=== PATIENT | male | born 1990 | race Caucasian/White ===

== ENCOUNTER 2018-05-01 10:55 | Emergency (ER) | payer MEDICAID ==
[~2018-05-01] VITALS: Ht 180.3 cm; Wt 67.8 kg
[2018-05-01 12:24] LABS: BASOPHILS % (AUTO) 0.5 % (0-1); EOSINOPHILS # (AUTO) 0.1 X10'3 (0-0.9); HEMATOCRIT 40.8 % (42.0-52.0); HEMOGLOBIN 13.5 g/dl (14.0-17.9); MEAN CORPUSCULAR HEMOGLOBIN 28.1 PG (27.0-31.0); MEAN CORPUSCULAR HGB CONC 33.1 % (33.0-36.5); MEAN PLATELET VOLUME 8.7 FL (7.4-10.4); MONOCYTES # (AUTO) 0.5 X10'3 (0-0.9); MONOCYTES % (AUTO) 7.3 % (2-12); NEUTROPHILS # (AUTO) 5.1 X10'3 (1.8-7.7); NEUTROPHILS % (AUTO) 76.2 % (42-75); PLATELET COUNT 225 X10'3 (140-440); RED CELL DISTRIBUTION WIDTH 15.5 % (11.5-14.5); WHITE BLOOD COUNT 6.7 X10'3 (4.5-11.0)
[2018-05-01 12:46] LABS: CLARITY,URINE CLEAR (Clear); COLOR,URINE STRAW (Yellow); GLUCOSE, URINE NEGATIVE (Neg); KETONES,URINE NEGATIVE (Neg); LEUKOCYTE ESTERASE ,URINE SMALL (Neg); NITRITES, URINE NEGATIVE (Neg); OCCULT BLOOD,URINE NEGATIVE (Neg); PROTEIN,URINE NEGATIVE (Neg); UA COLLECTION TYPE CLN CATCH MIDSTREAM; UROBILINOGEN,URINE 0.2 E.U/dL (0.2-1.0)
[2018-05-01 12:51] LABS: URINE AMPHETAMINE SCREEN NEGATIVE (Neg); URINE BARBITUATE SCREEN NEGATIVE (Neg); URINE BENZODIAZEPINES SCREEN NEGATIVE (Neg); URINE CANNABINOID SCREEN NEGATIVE (Neg); URINE COCAINE SCREEN NEGATIVE (Neg); URINE METHADONE SCREEN NEGATIVE (Neg); URINE OPIATE SCREEN NEGATIVE (Neg); URINE PHENCYCLIDINE SCREEN NEGATIVE (Neg)
[2018-05-01 12:52] LABS: ALANINE AMINOTRANSFERASE 209 U/L (12-78); ALBUMIN 3.6 G/DL (3.4-5.0); ALBUMIN/GLOBULIN RATIO 0.9 (1.1-1.5); ALKALINE PHOSPHATASE 84 IU/L (46-116); ANION GAP 8 (8-16); ASPARTATE AMINO TRANSFERASE 83 U/L (10-37); BILIRUBIN,TOTAL 0.1 MG/DL (0.1-1.0); BLOOD UREA NITROGEN 13 MG/DL (7-18); BUN/CREATININE RATIO 17.8 (5.4-32.0); CALCIUM 8.8 MG/DL (8.5-10.1); CHLORIDE 101 MMOL/L (99-107); CREATININE 0.73 MG/DL (0.60-1.10); ETHANOL < 0.010 GM/DL (0.0-0.010); GLUCOSE 93 MG/DL (70-104); POTASSIUM 3.9 MMOL/L (3.5-5.1); SODIUM 138 MMOL/L (135-145); TOTAL CARBON DIOXIDE 28.8 MMOL/L (24-32); TOTAL PROTEIN 7.5 G/DL (6.4-8.2); eGFR > 90 ML/MIN
[2018-05-01 12:53] VITALS: BP 125/70
[2018-05-01 12:58] LABS: BACTERIA,URINE NONE SEEN /HPF (Neg); RBC,URINE 0-2 /HPF (0-2); SQUAMOUS EPITHELIAL CELL,UR FEW /LPF (FEW); WBC,URINE 0-4 /HPF (0-4)
[2018-05-01] MEDS ORDERED: LIT300C PO (16:07)
[2018-05-01] MEDS ORDERED: LITH300C PO (16:07)
[2018-05-01] MEDS ORDERED: LITH600C PO (19:25)
[2018-05-01] MEDS ORDERED: lithium carbonate 150mg capsule PO SCH (21:00)
== END 2018-05-01 20:15 | disposition home or self-care (01) ==
LOC: ER 10:56
DX: R45.851 Suicidal ideations (principal); F31.9 Bipolar disorder, unspecified; F20.9 Schizophrenia, unspecified; Z98.890 Other specified postprocedural states
CPT/HCPCS: 36415; 80053; 80178; 80305; 80320; 81001; 85025; 99284

== ENCOUNTER 2018-09-25 13:14 | Emergency (ER) | payer MEDICAID ==
[~2018-09-25] VITALS: Ht 180.3 cm; Wt 68.2 kg
[~2018-09-25 13:14] MED LIST: LITH600C PO
[2018-09-25] MEDS ORDERED: NO HOME MEDS (14:19)
--- NOTE | 2018-09-25 14:19 | NUR ---
PT STATES HE HAS LIVED HERE FOR 3 YEARS. FROM [place]. HAS BEEN HAVING ISSUES WITH HEARING VOICES IN HIS HEAD FOR YEARS. BUT RECENTLY HE HAS BEEN HAVING THE DESIRE TO ACT ON HIS THOUGHTS OF HURTING HIMSELF. HE STATES HE DOESN'T HAVE A SPECIFIC PLAN. HE SAID HIS VOICES AREN'T TELLING HIM ANYTHING SPECIFIC BUT IT'S A MUMBLED MIXTURE OF THOUGHTS. HE STATES HE HAS BEEN HAVING A HARD TIME HOLDING DOWN A JOB. PT STATES HE RECENTLY OVERDOSED ON HEROIN AND DOESN'T WANT TO DO THIS "OR GET THIS BAD AGAIN". PT STATES AT THAT TIME HE WAS INTUBATED AND WAS SEEN AT [facility].
[2018-09-25 14:33] LABS: URINE AMPHETAMINE SCREEN NEGATIVE (Neg); URINE BARBITUATE SCREEN NEGATIVE (Neg); URINE BENZODIAZEPINES SCREEN NEGATIVE (Neg); URINE CANNABINOID SCREEN NEGATIVE (Neg); URINE COCAINE SCREEN NEGATIVE (Neg); URINE METHADONE SCREEN NEGATIVE (Neg); URINE OPIATE SCREEN NEGATIVE (Neg); URINE PHENCYCLIDINE SCREEN NEGATIVE (Neg)
[2018-09-25 15:06] LABS: BASOPHILS % (AUTO) 0.6 % (0-1); EOSINOPHILS # (AUTO) 0.1 X10'3 (0-0.9); EOSINOPHILS % (AUTO) 1.2 % (0-6); LYMPHOCYTES # (AUTO) 1.3 X10'3 (1.1-4.8); LYMPHOCYTES % (AUTO) 19.1 % (21-51); MEAN CORPUSCULAR HEMOGLOBIN 29.1 PG (27.0-31.0); MEAN CORPUSCULAR HGB CONC 33.2 g/dL (33.0-36.5); MEAN CORPUSCULAR VOLUME 87.6 FL (78-98); MONOCYTES # (AUTO) 0.6 X10'3 (0-0.9); MONOCYTES % (AUTO) 7.9 % (2-12); NEUTROPHILS % (AUTO) 71.2 % (42-75); PLATELET COUNT 263 X10'3 (140-440); RED BLOOD COUNT 5.14 X10'6 (4.70-6.10); RED CELL DISTRIBUTION WIDTH 14.5 % (11.5-14.5)
[2018-09-25 15:24] LABS: ALANINE AMINOTRANSFERASE 101 U/L (12-78); ALBUMIN 3.9 G/DL (3.4-5.0); ALBUMIN/GLOBULIN RATIO 1.1 (1.1-1.5); ALKALINE PHOSPHATASE 67 IU/L (46-116); ANION GAP 3 (8-16); ASPARTATE AMINO TRANSFERASE 52 U/L (10-37); BILIRUBIN,TOTAL 0.2 MG/DL (0.1-1.0); BLOOD UREA NITROGEN 12 MG/DL (7-18); BUN/CREATININE RATIO 16.2 (5.4-32.0); CALCIUM 9.3 MG/DL (8.5-10.1); CHLORIDE 104 MMOL/L (99-107); CREATININE 0.74 MG/DL (0.60-1.10); GLUCOSE 90 MG/DL (70-104); POTASSIUM 5.2 MMOL/L (3.5-5.1); SODIUM 138 MMOL/L (135-145); TOTAL CARBON DIOXIDE 31.5 MMOL/L (24-32); TOTAL PROTEIN 7.4 G/DL (6.4-8.2); eGFR > 90 ML/MIN
[2018-09-25 15:32] LABS: ETHANOL < 0.010 GM/DL (0.0-0.010)
--- NOTE | 2018-09-25 15:41 | NUR ---
PT GIVEN A SANDWICH. AND NOW HE IS WANTING MORE. GIVING HIM CRACKERS AND APPLE SAUCE
--- NOTE | 2018-09-25 16:19 | NUR ---
PT SLEEPING ON ASHLEE
--- NOTE | 2018-09-26 06:30 | NUR ---
PT up to the bathroom-1 void
--- NOTE | 2018-09-26 08:00 | NUR ---
PT up to bathroom-1 void
--- NOTE | 2018-09-26 08:12 | NUR ---
PT FINISHED BREAKFAST AND IS NOW RESTING IN BED. HE HAS BEEN AWAKE AND ALERT WITH STAFF. HE HAS BEEN ACTING APPROPRIATELY BY ASKING FOR SNACKS AND TOILETING INDEPENDENTLY.
--- NOTE | 2018-09-26 13:00 | NUR ---
Sleeping throughout morning except to get up to use bathroom. Pleasant and courteous when addressed. Does not engage in conversation except to provide brief answers to questions.
--- NOTE | 2018-09-26 14:30 | NUR ---
Dr. Presley at bedside to evaluate patient.
[2018-09-26] MEDS ORDERED: PALIPERIDONE 3 MG TAB.ER.24 PO ONE (16:25)
[2018-09-26] MEDS ORDERED: nicotine 21mg patch - 24 hr TD ONE (16:25)
[2018-09-26] MEDS ORDERED: divalproex sodium 250mg tablet PO ONE (16:25)
--- NOTE | 2018-09-26 17:15 | NUR ---
Medication orders wriiten by Dr. Presley. Administered to patient as ordered without event.
--- NOTE | 2018-09-26 19:00 | NUR ---
Pt resting quietly in bed, ate entire dinner tray.
[2018-09-26] MEDS ORDERED: divalproex sodium 500mg tablet.DR PO SCH (21:00)
--- NOTE | 2018-09-26 21:10 | NUR ---
Pt is cooperative with assessment and med administration. Pt states he is still having passive suicidal ideation. He has no clear plan. He says, " I just want to get stabalized on medication again, so these thoughts can go away." He used the bathroom and ate 100% of dinner.
--- NOTE | 2018-09-27 01:00 | NUR ---
Pt asleep on L side.
--- NOTE | 2018-09-27 03:00 | NUR ---
Pt used the bathroom twice. Pt falls asleep easily after each bathroom trip.
--- NOTE | 2018-09-27 05:28 | NUR ---
Pt asleep on L side, respirations WNL
[2018-09-27 05:37] VITALS: BP 123/77
[2018-09-27] MEDS ORDERED: divalproex sodium 250mg tablet PO ONE (08:00)
[2018-09-27] MEDS ORDERED: PALIPERIDONE 3 MG TAB.ER.24 PO SCH (08:00)
[2018-09-27] MEDS ORDERED: nicotine 21mg patch - 24 hr TD SCH (08:00)
--- NOTE | 2018-09-27 13:26 | NUR ---
1530 pickup time for [facility].
== END 2018-09-27 16:23 ==
LOC: ER 13:14
DX: F29 Unspecified psychosis not due to a substance or known physiological condition (principal); F31.9 Bipolar disorder, unspecified; F20.9 Schizophrenia, unspecified; F17.200 Nicotine dependence, unspecified, uncomplicated; F12.90 Cannabis use, unspecified, uncomplicated; F15.90 Other stimulant use, unspecified, uncomplicated; F11.90 Opioid use, unspecified, uncomplicated; Z98.890 Other specified postprocedural states
CPT/HCPCS: 36415; 80053; 80305; 80320; 84132; 84443; 85025; 99285

== ENCOUNTER 2020-07-06 12:47 | Emergency (ER) | payer MEDICAID, OTHER ==
[~2020-07-06] VITALS: Ht 180.3 cm; Wt 64.0 kg
[~2020-07-06 12:47] MED LIST changes: -LITH600C PO; +NO HOME MEDS
[2020-07-06 12:55] VITALS: BP 124/80
[2020-07-06] MEDS ORDERED: acetaminophen 325mg tablet PO ONE (15:05)
[2020-07-06] MEDS ORDERED: OLANZapine 5mg rapidly disint. tablet PO ONE (15:05)
[2020-07-06] MEDS ORDERED: naproxen 500mg tablet PO ONE (15:05)
[2020-07-06] MEDS ORDERED: NAPR-56 PO (15:06)
[2020-07-06] MEDS ORDERED: OLAN-1 PO (15:06)
== END 2020-07-06 15:17 | disposition home or self-care (01) ==
LOC: ER 12:47
DX: R51.9 Headache, unspecified (principal); R10.9 Unspecified abdominal pain; R25.2 Cramp and spasm; F12.90 Cannabis use, unspecified, uncomplicated; F15.90 Other stimulant use, unspecified, uncomplicated; F11.90 Opioid use, unspecified, uncomplicated; Z72.89 Other problems related to lifestyle; Z87.81 Personal history of (healed) traumatic fracture; Z79.899 Other long term (current) drug therapy
CPT/HCPCS: 99284

== ENCOUNTER 2020-07-14 15:04 | Emergency (ER) | payer SELFPAY ==
[~2020-07-14] VITALS: Ht 180.3 cm; Wt 4.5 kg
[~2020-07-14 15:04] MED LIST changes: +NAPR-56 PO; +OLAN-1 PO
[2020-07-14 15:49] LABS: BASOPHILS % (AUTO) 0.4 % (0-1); EOSINOPHILS # (AUTO) 0.1 X10'3 (0-0.9); EOSINOPHILS % (AUTO) 0.8 % (0-6); HEMATOCRIT 47.6 % (42.0-52.0); HEMOGLOBIN 15.7 g/dl (14.0-17.9); LYMPHOCYTES # (AUTO) 1.3 X10'3 (1.1-4.8); LYMPHOCYTES % (AUTO) 20.1 % (21-51); MEAN CORPUSCULAR HEMOGLOBIN 29.4 PG (27.0-31.0); MEAN CORPUSCULAR HGB CONC 33.1 g/dL (33.0-36.5); MEAN CORPUSCULAR VOLUME 88.7 FL (78-98); MEAN PLATELET VOLUME 9.4 FL (7.4-10.4); MONOCYTES # (AUTO) 0.5 X10'3 (0-0.9); MONOCYTES % (AUTO) 7.8 % (2-12); NEUTROPHILS # (AUTO) 4.5 X10'3 (1.8-7.7); NEUTROPHILS % (AUTO) 70.9 % (42-75); PLATELET COUNT 236 X10'3 (140-440); RED BLOOD COUNT 5.36 X10'6 (4.70-6.10); RED CELL DISTRIBUTION WIDTH 13.8 % (11.5-14.5); WHITE BLOOD COUNT 6.4 X10'3 (4.5-11.0)
[2020-07-14 15:54] VITALS: BP_DIAS 83
[2020-07-14 16:07] LABS: ALANINE AMINOTRANSFERASE 61 U/L (12-78); ALBUMIN 4.3 G/DL (3.4-5.0); ALBUMIN/GLOBULIN RATIO 1.1 (1.1-1.5); ALKALINE PHOSPHATASE 82 IU/L (46-116); ANION GAP 9 (8-16); ASPARTATE AMINO TRANSFERASE 39 U/L (10-37); BILIRUBIN,TOTAL 0.4 MG/DL (0.1-1.0); BLOOD UREA NITROGEN 11 MG/DL (7-18); BUN/CREATININE RATIO 12.9 (5.4-32.0); CALCIUM 9.4 MG/DL (8.5-10.1); CHLORIDE 104 MMOL/L (99-107); CREATININE 0.85 MG/DL (0.60-1.10); GLUCOSE 111 MG/DL (70-104); POTASSIUM 3.6 MMOL/L (3.5-5.1); SODIUM 143 MMOL/L (135-145); TOTAL CARBON DIOXIDE 30.4 MMOL/L (24-32); TOTAL PROTEIN 8.1 G/DL (6.4-8.2); eGFR > 90 ML/MIN
[2020-07-14 16:52] LABS: D-DIMER < 0.19 MG/L FEU (0-0.50)
[2020-07-14 17:10] VITALS: BP_SYST 94
== END 2020-07-14 17:45 | disposition home or self-care (01) ==
LOC: ER 15:04
DX: J93.83 Other pneumothorax (principal); F19.10 Other psychoactive substance abuse, uncomplicated; R53.1 Weakness; R07.89 Other chest pain; F31.9 Bipolar disorder, unspecified; F20.9 Schizophrenia, unspecified; F17.200 Nicotine dependence, unspecified, uncomplicated; F12.90 Cannabis use, unspecified, uncomplicated; F15.90 Other stimulant use, unspecified, uncomplicated; F11.90 Opioid use, unspecified, uncomplicated; Z98.890 Other specified postprocedural states; Z72.89 Other problems related to lifestyle; Z79.899 Other long term (current) drug therapy
CPT/HCPCS: 36415; 71045; 80053; 83880; 84484; 85025; 85379; 93005; 99285

== ENCOUNTER 2020-07-15 08:28 | Emergency (ER) | payer SELFPAY ==
[~2020-07-15] VITALS: Ht 180.3 cm; Wt 68.2 kg
[2020-07-15 10:18] VITALS: BP 120/79
== END 2020-07-15 10:20 | disposition home or self-care (01) ==
LOC: ER 08:29
DX: J93.83 Other pneumothorax (principal); R06.02 Shortness of breath; R07.89 Other chest pain; F31.9 Bipolar disorder, unspecified; F20.9 Schizophrenia, unspecified; F12.90 Cannabis use, unspecified, uncomplicated; F15.90 Other stimulant use, unspecified, uncomplicated; F11.90 Opioid use, unspecified, uncomplicated; Z98.890 Other specified postprocedural states; Z72.89 Other problems related to lifestyle; Z79.899 Other long term (current) drug therapy
CPT/HCPCS: 71045; 99284

== ENCOUNTER 2020-07-23 05:33 | Emergency (ER) | payer SELFPAY ==
[~2020-07-23] VITALS: Ht 180.3 cm; Wt 63.5 kg
[2020-07-23 07:02] VITALS: BP 131/98
== END 2020-07-23 07:03 | disposition home or self-care (01) ==
LOC: ER 05:33
DX: F29 Unspecified psychosis not due to a substance or known physiological condition (principal); R51.9 Headache, unspecified; F31.9 Bipolar disorder, unspecified; F20.9 Schizophrenia, unspecified; F12.90 Cannabis use, unspecified, uncomplicated; F15.90 Other stimulant use, unspecified, uncomplicated; F11.90 Opioid use, unspecified, uncomplicated; Z98.890 Other specified postprocedural states; Z72.89 Other problems related to lifestyle; Z59.0 Homelessness
CPT/HCPCS: 93005; 99283

== ENCOUNTER 2020-07-24 01:17 | Emergency (ER) | payer OTHER ==
[~2020-07-24] VITALS: Ht 180.3 cm; Wt 63.6 kg
[2020-07-24 01:20] VITALS: BP 151/97
--- NOTE | 2020-07-24 01:33 | NUR ---
When asked what he would like the to do for him tonight, patient states that he wants to go upstairs because he needs the pressure inside regulated.
[2020-07-24] MEDS ORDERED: ibuprofen tablet 400 MG TABLET PO ONE (02:00)
[2020-07-24] MEDS ORDERED: acetaminophen 325mg tablet PO ONE (02:00)
== END 2020-07-24 02:35 | disposition home or self-care (01) ==
LOC: ER 01:18
DX: R07.81 Pleurodynia (principal); F31.9 Bipolar disorder, unspecified; F20.9 Schizophrenia, unspecified; F12.90 Cannabis use, unspecified, uncomplicated; F15.90 Other stimulant use, unspecified, uncomplicated; Z72.89 Other problems related to lifestyle; Z98.890 Other specified postprocedural states; Z59.0 Homelessness; Z79.899 Other long term (current) drug therapy
CPT/HCPCS: 71045; 93005; 99283

== ENCOUNTER 2020-08-03 13:35 | Emergency (ER) | payer SELFPAY ==
[~2020-08-03] VITALS: Ht 180.3 cm; Wt 63.9 kg
[2020-08-03 13:43] VITALS: BP 108/79
[2020-08-03] MEDS ORDERED: DIPH25CA83 PO (14:42)
[2020-08-03] MEDS ORDERED: RISP1TAB13 PO (14:42)
== END 2020-08-03 15:17 | disposition home or self-care (01) ==
LOC: ER 13:36
DX: F29 Unspecified psychosis not due to a substance or known physiological condition (principal); F31.9 Bipolar disorder, unspecified; F20.9 Schizophrenia, unspecified; F12.90 Cannabis use, unspecified, uncomplicated; F15.90 Other stimulant use, unspecified, uncomplicated; Z72.89 Other problems related to lifestyle; Z98.890 Other specified postprocedural states; Z59.0 Homelessness; Z79.899 Other long term (current) drug therapy
CPT/HCPCS: 99284

== ENCOUNTER 2021-03-24 23:46 | Emergency (ER) | payer OTHER ==
[~2021-03-24] VITALS: Ht 180.3 cm; Wt 72.7 kg
[~2021-03-24 23:46] MED LIST changes: +DIPH25CA83 PO; -NAPR-56 PO; +RISP1TAB13 PO
[2021-03-25] MEDS ORDERED: RISP1TAB13 PO (00:22)
[2021-03-25] MEDS ORDERED: OLAN-1 PO (00:22)
[2021-03-25] MEDS ORDERED: DIPH25CA83 PO (00:22)
[2021-03-25] MEDS ORDERED: OLANZapine 5mg rapidly disint. tablet PO ONE (00:25)
[2021-03-25 00:39] VITALS: BP 132/92
== END 2021-03-25 00:59 | disposition home or self-care (01) ==
LOC: ER 23:48
DX: F29 Unspecified psychosis not due to a substance or known physiological condition (principal); F31.9 Bipolar disorder, unspecified; F20.9 Schizophrenia, unspecified; F17.200 Nicotine dependence, unspecified, uncomplicated; F12.90 Cannabis use, unspecified, uncomplicated; Z98.890 Other specified postprocedural states; Z72.89 Other problems related to lifestyle; Z56.0 Unemployment, unspecified; Z59.00 Homelessness unspecified; Z79.899 Other long term (current) drug therapy
CPT/HCPCS: 99284

== ENCOUNTER 2021-04-08 07:56 | Emergency (ER) | payer MEDICAID, OTHER ==
[~2021-04-08] VITALS: Ht 180.3 cm; Wt 63.6 kg
[2021-04-08 08:00] VITALS: BP 159/90
[2021-04-08] MEDS ORDERED: olanzapine 10mg tablet PO STA (08:28)
[2021-04-08] MEDS ORDERED: diphenhydrAMINE 25mg capsule PO ONE (08:30)
== END 2021-04-08 09:33 | disposition home or self-care (01) ==
LOC: ER 07:57
DX: F29 Unspecified psychosis not due to a substance or known physiological condition (principal); R45.1 Restlessness and agitation; F31.9 Bipolar disorder, unspecified; F20.9 Schizophrenia, unspecified; F12.90 Cannabis use, unspecified, uncomplicated; R56.9 Unspecified convulsions; Z72.89 Other problems related to lifestyle; Z59.00 Homelessness unspecified; Z98.890 Other specified postprocedural states; Z79.899 Other long term (current) drug therapy
CPT/HCPCS: 99283; Q0163

== ENCOUNTER 2021-06-15 01:28 | Emergency (ER) | payer MEDICAID, OTHER ==
[~2021-06-15] VITALS: Ht 177.8 cm; Wt 72.7 kg
[2021-06-15] MEDS ORDERED: LORazepam 2 mg/ml vial IM ONE (01:30)
[2021-06-15 01:43] VITALS: BP 122/62
== END 2021-06-15 01:54 ==
LOC: ER 01:28
DX: Z00.8 Encounter for other general examination (principal); F31.9 Bipolar disorder, unspecified; F20.9 Schizophrenia, unspecified; F12.90 Cannabis use, unspecified, uncomplicated; Z59.00 Homelessness unspecified; Z72.89 Other problems related to lifestyle; Z98.890 Other specified postprocedural states; Z79.899 Other long term (current) drug therapy
CPT/HCPCS: 96372; 99283; J2060

== ENCOUNTER 2021-09-23 13:26 | Emergency (ER) | payer SELFPAY ==
[~2021-09-23] VITALS: Ht 180.3 cm; Wt 28.9 kg
[2021-09-23 14:12] VITALS: BP 105/49
[2021-09-23 15:02] LABS: BASOPHILS % (AUTO) 0.1 % (0-1); EOSINOPHILS % (AUTO) 0.1 % (0-6); HEMATOCRIT 42.3 % (42.0-52.0); LYMPHOCYTES # (AUTO) 0.3 X10'3 (1.1-4.8); LYMPHOCYTES % (AUTO) 1.9 % (21-51); MEAN CORPUSCULAR HEMOGLOBIN 29.6 PG (27.0-31.0); MEAN CORPUSCULAR VOLUME 89.9 FL (78-98); MEAN PLATELET VOLUME 8.8 FL (7.4-10.4); MONOCYTES # (AUTO) 0.7 X10'3 (0-0.9); MONOCYTES % (AUTO) 4.4 % (2-12); NEUTROPHILS # (AUTO) 14.7 X10'3 (1.8-7.7); NEUTROPHILS % (AUTO) 93.5 % (42-75); PLATELET COUNT 228 X10'3 (140-440); RED BLOOD COUNT 4.71 X10'6 (4.70-6.10); RED CELL DISTRIBUTION WIDTH 14.2 % (11.5-14.5); WHITE BLOOD COUNT 15.7 X10'3 (4.5-11.0)
[2021-09-23 15:13] LABS: ALANINE AMINOTRANSFERASE 46 U/L (12-78); ALBUMIN 3.4 G/DL (3.4-5.0); ALBUMIN/GLOBULIN RATIO 1.1 (1.1-1.5); ALKALINE PHOSPHATASE 76 IU/L (46-116); ANION GAP 10 (8-16); ASPARTATE AMINO TRANSFERASE 33 U/L (10-37); BILIRUBIN,TOTAL 0.4 MG/DL (0.1-1.0); BLOOD UREA NITROGEN 19 MG/DL (7-18); BUN/CREATININE RATIO 18.1 (5.4-32.0); CALCIUM 8.1 MG/DL (8.5-10.1); CHLORIDE 109 MMOL/L (99-107); CREATININE 1.05 MG/DL (0.60-1.10); GLUCOSE 146 MG/DL (70-104); POTASSIUM 4.1 MMOL/L (3.5-5.1); SODIUM 145 MMOL/L (135-145); TOTAL CARBON DIOXIDE 25.8 MMOL/L (24-32); TOTAL PROTEIN 6.6 G/DL (6.4-8.2); eGFR 83 ML/MIN
== END 2021-09-23 15:40 | disposition home or self-care (01) ==
LOC: ER 13:26
DX: T40.411A Poisoning by fentanyl or fentanyl analogs, accidental (unintentional), initial encounter (principal); R00.0 Tachycardia, unspecified; Y92.89 Other specified places as the place of occurrence of the external cause; F31.9 Bipolar disorder, unspecified; F20.9 Schizophrenia, unspecified; F12.10 Cannabis abuse, uncomplicated; Z59.00 Homelessness unspecified; Z79.899 Other long term (current) drug therapy
CPT/HCPCS: 36415; 70450; 80053; 85025; 93005; 99285

== ENCOUNTER 2023-08-26 13:09 | Emergency (ER) | payer MEDICAID ==
[~2023-08-26] VITALS: Ht 177.8 cm; Wt 86.4 kg
[~2023-08-26 13:09] MED LIST changes: +BUPR1TAB44 SL; +CLOT15CR35 TP; -DIPH25CA83 PO; +ESCI-8 PO; +HYDR-3686 PO; +NICO-907 BC; -OLAN-1 PO; +PANT40TA54 PO; +QUET100T34 PO; -RISP1TAB13 PO
[2023-08-26 13:23] VITALS: TEMP 98.2
[2023-08-26] MEDS ORDERED: ketorolac trometh. 30mg/ml inj. IM ONE (13:25)
[2023-08-26] MEDS: ketorolac tromethamine 15mg/ml inj. IM ONE (13:38)
[2023-08-26 17:48] VITALS: BP 126/81; PULSE 87; RESP 18; O2SAT 99
== END 2023-08-26 18:23 | disposition home or self-care (01) ==
LOC: ER 13:10
DX: T40.601A Poisoning by unspecified narcotics, accidental (unintentional), initial encounter (principal); F20.9 Schizophrenia, unspecified; F12.90 Cannabis use, unspecified, uncomplicated; F15.90 Other stimulant use, unspecified, uncomplicated; R11.0 Nausea; Z72.89 Other problems related to lifestyle; Z59.00 Homelessness unspecified; Z98.890 Other specified postprocedural states; Y92.89 Other specified places as the place of occurrence of the external cause
CPT/HCPCS: 82948; 96372; 99283; J1885

== ENCOUNTER 2023-08-27 10:55 | Emergency (ER) | payer MEDICAID ==
[~2023-08-27] VITALS: Ht 180.3 cm; Wt 58.0 kg
[2023-08-27 11:02] VITALS: TEMP 97.5
[2023-08-27 12:04] LABS: BASOPHILS % (AUTO) 0.4 % (0-1); EOSINOPHILS # (AUTO) 0.1 X10'3 (0-0.9); EOSINOPHILS % (AUTO) 0.9 % (0-6); HEMATOCRIT 36.7 % (42.0-52.0); HEMOGLOBIN 12.2 g/dl (14.0-17.9); LYMPHOCYTES # (AUTO) 1.1 X10'3 (1.1-4.8); LYMPHOCYTES % (AUTO) 12.7 % (21-51); MEAN CORPUSCULAR HEMOGLOBIN 29.3 PG (27.0-31.0); MEAN CORPUSCULAR HGB CONC 33.2 g/dL (33.0-36.5); MEAN CORPUSCULAR VOLUME 88.3 FL (78-98); MEAN PLATELET VOLUME 8.5 FL (7.4-10.4); MONOCYTES # (AUTO) 0.7 X10'3 (0-0.9); NEUTROPHILS # (AUTO) 6.6 X10'3 (1.8-7.7); PLATELET COUNT 206 X10'3 (140-440); RED BLOOD COUNT 4.16 X10'6 (4.70-6.10); RED CELL DISTRIBUTION WIDTH 13.5 % (11.5-14.5); WHITE BLOOD COUNT 8.5 X10'3 (4.5-11.0)
[2023-08-27] MEDS: normal saline 1000ML IV soln IVB ONE (12:07)
[2023-08-27] MEDS: TETanus/Pertussis (Acell)/Diphther VAC/PF (Tdap-Adult) 0.5ml syringe IMVAC ONE (12:17)
[2023-08-27 12:22] LABS: ALBUMIN 3.3 G/DL (3.4-5.0); ANION GAP 9 (8-16); BLOOD UREA NITROGEN 15 MG/DL (7-18); BUN/CREATININE RATIO 16.3 (10.0-20.0); CALCIUM 8.5 MG/DL (8.5-10.1); CHLORIDE 102 MMOL/L (99-107); CREATININE 0.92 MG/DL (0.60-1.10); ETHANOL < 10 MG/DL (<10); GLUCOSE 86 MG/DL (70-104); POTASSIUM 3.2 MMOL/L (3.5-5.1); SODIUM 140 MMOL/L (135-145); TOTAL CARBON DIOXIDE 29.5 MMOL/L (24-32); eCRCL 95 ML/MIN; eGFR > 90 ML/MIN
[2023-08-27 14:20] LABS: URINE AMPHETAMINE SCREEN POSITIVE (Neg); URINE BARBITUATE SCREEN NEGATIVE (Neg); URINE BENZODIAZEPINES SCREEN NEGATIVE (Neg); URINE CANNABINOID SCREEN POSITIVE (Neg); URINE COCAINE SCREEN NEGATIVE (Neg); URINE METHADONE SCREEN NEGATIVE (Neg); URINE OPIATE SCREEN NEGATIVE (Neg); URINE PHENCYCLIDINE SCREEN NEGATIVE (Neg)
[2023-08-27 16:01] VITALS: BP 125/88; PULSE 89; RESP 16; O2SAT 98
== END 2023-08-27 16:04 | disposition home or self-care (01) ==
LOC: ER 10:56
DX: T40.601A Poisoning by unspecified narcotics, accidental (unintentional), initial encounter (principal); S00.211A Abrasion of right eyelid and periocular area, initial encounter; R51.9 Headache, unspecified; F12.90 Cannabis use, unspecified, uncomplicated; F15.90 Other stimulant use, unspecified, uncomplicated; Z59.00 Homelessness unspecified; Z79.899 Other long term (current) drug therapy; Z72.89 Other problems related to lifestyle; X58.XXXA Exposure to other specified factors, initial encounter; Y92.89 Other specified places as the place of occurrence of the external cause; Y93.89 Activity, other specified; Y99.8 Other external cause status
CPT/HCPCS: 36415; 70450; 72125; 80048; 80305; 80320; 85025; 90471; 90715; 93005; 96360; 99285; J7030; A6449

== ENCOUNTER 2023-09-01 20:10 | Emergency (ER) | payer MEDICAID ==
[~2023-09-01] VITALS: Ht 177.8 cm; Wt 70.0 kg
[2023-09-01 21:18] LABS: ALBUMIN 3.3 G/DL (3.4-5.0); ANION GAP 7 (8-16); BLOOD UREA NITROGEN 11 MG/DL (7-18); BUN/CREATININE RATIO 10.6 (10.0-20.0); CALCIUM 8.6 MG/DL (8.5-10.1); CHLORIDE 104 MMOL/L (99-107); CREATININE 1.04 MG/DL (0.60-1.10); GLUCOSE 87 MG/DL (70-104); POTASSIUM 3.6 MMOL/L (3.5-5.1); SODIUM 140 MMOL/L (135-145); TOTAL CARBON DIOXIDE 29.4 MMOL/L (24-32); eCRCL 101 ML/MIN; eGFR 83 ML/MIN
[2023-09-01 21:21] LABS: ETHANOL < 10 MG/DL (<10)
[2023-09-01 21:26] LABS: BASOPHILS # (AUTO) 0.1 X10'3 (0-0.2); BASOPHILS % (AUTO) 1.6 % (0-1); EOSINOPHILS # (AUTO) 0.1 X10'3 (0-0.9); EOSINOPHILS % (AUTO) 2.2 % (0-6); HEMATOCRIT 39.5 % (42.0-52.0); HEMOGLOBIN 13.1 g/dl (14.0-17.9); LYMPHOCYTES # (AUTO) 0.7 X10'3 (1.1-4.8); LYMPHOCYTES % (AUTO) 9.9 % (21-51); MEAN CORPUSCULAR HEMOGLOBIN 29.4 PG (27.0-31.0); MEAN CORPUSCULAR HGB CONC 33.2 g/dL (33.0-36.5); MEAN CORPUSCULAR VOLUME 88.7 FL (78-98); MEAN PLATELET VOLUME 8.5 FL (7.4-10.4); MONOCYTES # (AUTO) 0.6 X10'3 (0-0.9); MONOCYTES % (AUTO) 8.7 % (2-12); NEUTROPHILS # (AUTO) 5.1 X10'3 (1.8-7.7); NEUTROPHILS % (AUTO) 77.6 % (42-75); PLATELET COUNT 263 X10'3 (140-440); RED BLOOD COUNT 4.45 X10'6 (4.70-6.10); RED CELL DISTRIBUTION WIDTH 13.4 % (11.5-14.5); WHITE BLOOD COUNT 6.6 X10'3 (4.5-11.0)
[2023-09-01 22:05] LABS: URINE AMPHETAMINE SCREEN POSITIVE (Neg); URINE BARBITUATE SCREEN NEGATIVE (Neg); URINE BENZODIAZEPINES SCREEN NEGATIVE (Neg); URINE CANNABINOID SCREEN POSITIVE (Neg); URINE COCAINE SCREEN NEGATIVE (Neg); URINE METHADONE SCREEN NEGATIVE (Neg); URINE OPIATE SCREEN NEGATIVE (Neg); URINE PHENCYCLIDINE SCREEN NEGATIVE (Neg)
[2023-09-02 17:31] VITALS: BP 121/83; PULSE 82; RESP 16; TEMP 97.4; O2SAT 100
== END 2023-09-02 17:45 | disposition home or self-care (01) ==
LOC: ER 20:11
DX: T40.602A Poisoning by unspecified narcotics, intentional self-harm, initial encounter (principal); F15.90 Other stimulant use, unspecified, uncomplicated; F12.90 Cannabis use, unspecified, uncomplicated; F20.9 Schizophrenia, unspecified; Z72.89 Other problems related to lifestyle; Z59.00 Homelessness unspecified; Z79.899 Other long term (current) drug therapy; Y92.89 Other specified places as the place of occurrence of the external cause
CPT/HCPCS: 36415; 80048; 80305; 80320; 85025; 99284; 99285

== ENCOUNTER 2023-09-06 10:26 | Emergency (ER) | payer MEDICAID ==
[~2023-09-06] VITALS: Ht 180.3 cm; Wt 65.0 kg
[2023-09-06 10:32] VITALS: TEMP 97.8
[2023-09-06 11:21] LABS: BASOPHILS % (AUTO) 0.2 % (0-1); EOSINOPHILS % (AUTO) 0.4 % (0-6); HEMATOCRIT 43.3 % (42.0-52.0); HEMOGLOBIN 14.3 g/dl (14.0-17.9); LYMPHOCYTES # (AUTO) 0.5 X10'3 (1.1-4.8); LYMPHOCYTES % (AUTO) 7.6 % (21-51); MEAN CORPUSCULAR HEMOGLOBIN 29.1 PG (27.0-31.0); MEAN CORPUSCULAR HGB CONC 33.1 g/dL (33.0-36.5); MEAN PLATELET VOLUME 8.6 FL (7.4-10.4); MONOCYTES # (AUTO) 0.4 X10'3 (0-0.9); MONOCYTES % (AUTO) 5.3 % (2-12); NEUTROPHILS # (AUTO) 6.1 X10'3 (1.8-7.7); NEUTROPHILS % (AUTO) 86.5 % (42-75); PLATELET COUNT 304 X10'3 (140-440); RED BLOOD COUNT 4.92 X10'6 (4.70-6.10); RED CELL DISTRIBUTION WIDTH 13.2 % (11.5-14.5); WHITE BLOOD COUNT 7.1 X10'3 (4.5-11.0)
[2023-09-06] MEDS: normal saline 1000ml 1,000 ML IV ONE (11:28)
[2023-09-06 11:31] VITALS: BP 136/90; PULSE 111; O2SAT 100
[2023-09-06 11:34] VITALS: RESP 15
[2023-09-06 11:44] LABS: ALANINE AMINOTRANSFERASE 51 U/L (12-78); ALBUMIN 3.6 G/DL (3.4-5.0); ALBUMIN/GLOBULIN RATIO 0.8 (1.1-1.5); ALKALINE PHOSPHATASE 142 IU/L (46-116); ANION GAP 13 (8-16); ASPARTATE AMINO TRANSFERASE 47 U/L (10-37); BILIRUBIN,TOTAL 0.5 MG/DL (0.1-1.0); BLOOD UREA NITROGEN 15 MG/DL (7-18); CALCIUM 8.8 MG/DL (8.5-10.1); CHLORIDE 103 MMOL/L (99-107); CREATININE 0.75 MG/DL (0.60-1.10); ETHANOL < 10 MG/DL (<10); GLUCOSE 93 MG/DL (70-104); MAGNESIUM 2.2 MG/DL (1.5-2.4); POTASSIUM 4.5 MMOL/L (3.5-5.1); SODIUM 141 MMOL/L (135-145); TOTAL CARBON DIOXIDE 25.2 MMOL/L (24-32); TOTAL PROTEIN 7.9 G/DL (6.4-8.2); eCRCL 130 ML/MIN; eGFR > 90 ML/MIN
[2023-09-06 11:56] LABS: BILIRUBIN,URINE NEGATIVE (Neg); CLARITY,URINE CLOUDY (Clear); COLOR,URINE YELLOW (Yellow); GLUCOSE, URINE NEGATIVE (Neg); KETONES,URINE 15 mg/dl (Neg); LEUKOCYTE ESTERASE ,URINE NEGATIVE (Neg); NITRITES, URINE NEGATIVE (Neg); OCCULT BLOOD,URINE NEGATIVE (Neg); PROTEIN,URINE TRACE mg/dl (Neg)
[2023-09-06 11:59] LABS: UA COLLECTION TYPE URINAL
[2023-09-06 12:03] LABS: URINE AMPHETAMINE SCREEN POSITIVE (Neg); URINE BARBITUATE SCREEN NEGATIVE (Neg); URINE BENZODIAZEPINES SCREEN NEGATIVE (Neg); URINE CANNABINOID SCREEN POSITIVE (Neg); URINE COCAINE SCREEN NEGATIVE (Neg); URINE METHADONE SCREEN NEGATIVE (Neg); URINE OPIATE SCREEN NEGATIVE (Neg); URINE PHENCYCLIDINE SCREEN NEGATIVE (Neg)
[2023-09-06 12:06] LABS: MUCUS STRANDS FEW /LPF (Neg); SPERM MANY /HPF (NEGATIVE); SQUAMOUS EPITHELIAL CELL,UR FEW /LPF (FEW)
[2023-09-06 12:07] LABS: BACTERIA,URINE 1+ /HPF (Neg); RBC,URINE 0-2 /HPF (0-2)
== END 2023-09-06 13:21 | disposition home or self-care (01) ==
LOC: ER 10:27
DX: T40.411A Poisoning by fentanyl or fentanyl analogs, accidental (unintentional), initial encounter (principal); T74.31XA Adult psychological abuse, confirmed, initial encounter; F19.10 Other psychoactive substance abuse, uncomplicated; R45.1 Restlessness and agitation; Z79.899 Other long term (current) drug therapy; Z79.2 Long term (current) use of antibiotics; Y92.89 Other specified places as the place of occurrence of the external cause
CPT/HCPCS: 36415; 80053; 80305; 80320; 81001; 83735; 84484; 85025; 87088; 93005; 96360; 99284; J7030

== ENCOUNTER 2023-12-30 04:54 | Emergency (ER) | payer MEDICAID ==
[~2023-12-30] VITALS: Ht 177.8 cm; Wt 56.2 kg
[2023-12-30 04:57] VITALS: TEMP 97.4
[2023-12-30] MEDS ORDERED: NALO4SPR BOTHNARES (05:50)
[2023-12-30 07:36] VITALS: BP 129/88; PULSE 74; RESP 16; O2SAT 99
== END 2023-12-30 07:38 | disposition home or self-care (01) ==
LOC: ER 04:55
DX: T40.411A Poisoning by fentanyl or fentanyl analogs, accidental (unintentional), initial encounter (principal); M54.2 Cervicalgia; R09.2 Respiratory arrest; F31.9 Bipolar disorder, unspecified; F12.90 Cannabis use, unspecified, uncomplicated; F15.90 Other stimulant use, unspecified, uncomplicated; Z79.899 Other long term (current) drug therapy; Z79.2 Long term (current) use of antibiotics; Y92.89 Other specified places as the place of occurrence of the external cause
CPT/HCPCS: 72040; 99283

== ENCOUNTER 2024-03-25 16:41 | Emergency (ER) | payer MEDICAID ==
[~2024-03-25] VITALS: Ht 172.7 cm; Wt 61.5 kg
[~2024-03-25 16:41] MED LIST changes: +NALO4SPR BOTHNARES
[2024-03-25] MEDS: ketorolac trometh 15mg/ml vial 15 MG/ML ML IM ONE (18:33)
[2024-03-25 18:42] VITALS: BP 114/60; PULSE 90; RESP 18; TEMP 98.8; O2SAT 99
== END 2024-03-25 18:44 | disposition home or self-care (01) ==
LOC: ER 16:42
DX: S00.81XA Abrasion of other part of head, initial encounter (principal); Z79.899 Other long term (current) drug therapy; Z59.00 Homelessness unspecified; W22.8XXA Striking against or struck by other objects, initial encounter; Y93.89 Activity, other specified; Y92.89 Other specified places as the place of occurrence of the external cause; Y99.8 Other external cause status
CPT/HCPCS: 96372; 99283; J1885

== ENCOUNTER → 2024-04-23 | Emergency (ER) | payer MEDICAID ==
[~2024-04-23] VITALS: Ht 180.3 cm; Wt 68.2 kg
[~2024-04-23] MED LIST changes: +BUPR-72 PO; -BUPR1TAB44 SL; -CLOT15CR35 TP; -ESCI-8 PO; -HYDR-3686 PO; -NALO4SPR BOTHNARES; -NICO-907 BC; -NO HOME MEDS; +OLAN5TAB75 PO; -PANT40TA54 PO; +PROP10TA10 PO; -QUET100T34 PO; +TRAZ-251 PO
[2024-04-23 01:48] LABS: BILIRUBIN,URINE NEGATIVE (Neg); CLARITY,URINE CLEAR (Clear); COLOR,URINE YELLOW (Yellow); GLUCOSE, URINE NEGATIVE (Neg); KETONES,URINE NEGATIVE (Neg); LEUKOCYTE ESTERASE ,URINE NEGATIVE (Neg); NITRITES, URINE NEGATIVE (Neg); OCCULT BLOOD,URINE NEGATIVE (Neg); PH,URINE 6.5 (4.8-8.0); PROTEIN,URINE NEGATIVE (Neg)
[2024-04-23 01:54] LABS: UA COLLECTION TYPE CLN CATCH MIDSTREAM
[2024-04-23 02:03] LABS: URINE AMPHETAMINE SCREEN NEGATIVE (Neg); URINE BARBITUATE SCREEN NEGATIVE (Neg); URINE BENZODIAZEPINES SCREEN NEGATIVE (Neg); URINE CANNABINOID SCREEN POSITIVE (Neg); URINE COCAINE SCREEN NEGATIVE (Neg); URINE METHADONE SCREEN NEGATIVE (Neg); URINE OPIATE SCREEN NEGATIVE (Neg); URINE PHENCYCLIDINE SCREEN NEGATIVE (Neg)
[2024-04-23 02:19] LABS: BASOPHILS % (AUTO) 0.3 % (0-1); EOSINOPHILS # (AUTO) 0.2 X10'3 (0-0.9); EOSINOPHILS % (AUTO) 2.7 % (0-6); HEMATOCRIT 36.2 % (42.0-52.0); HEMOGLOBIN 12.2 g/dl (14.0-17.9); LYMPHOCYTES # (AUTO) 1.1 X10'3 (1.1-4.8); LYMPHOCYTES % (AUTO) 18.8 % (21-51); MEAN CORPUSCULAR HEMOGLOBIN 29.9 PG (27.0-31.0); MEAN CORPUSCULAR HGB CONC 33.9 g/dL (33.0-36.5); MEAN CORPUSCULAR VOLUME 88.2 FL (78-98); MEAN PLATELET VOLUME 8.5 FL (7.4-10.4); MONOCYTES # (AUTO) 0.7 X10'3 (0-0.9); MONOCYTES % (AUTO) 11.9 % (2-12); NEUTROPHILS # (AUTO) 3.8 X10'3 (1.8-7.7); NEUTROPHILS % (AUTO) 66.3 % (42-75); PLATELET COUNT 185 X10'3 (140-440); RED CELL DISTRIBUTION WIDTH 14.1 % (11.5-14.5); WHITE BLOOD COUNT 5.8 X10'3 (4.5-11.0)
[2024-04-23] MEDS: diphenhydrAMINE 25mg capsule PO ONE (02:19)
[2024-04-23 02:42] LABS: ALBUMIN 2.9 G/DL (3.4-5.0); BLOOD UREA NITROGEN 15 MG/DL (7-18); CALCIUM 8.4 MG/DL (8.5-10.1); SODIUM 142 MMOL/L (135-145); eGFR > 90 ML/MIN
[2024-04-23 06:07] VITALS: BP 138/91; PULSE 85; RESP 18; O2SAT 96
[2024-04-23] MEDS: OLANZapine 2.5MG tablet PO SCH (08:18)
[2024-04-23 08:45] LABS: ANION GAP 11 (8-16); BUN/CREATININE RATIO 21.7 (10.0-20.0); CHLORIDE 107 MMOL/L (99-107); CREATININE 0.69 MG/DL (0.60-1.10); ETHANOL < 10 MG/DL (<10); FREE T4 (FREE THYROXINE) 0.93 NG/DL (0.73-1.40); GLUCOSE 106 MG/DL (70-104); POTASSIUM 3.9 MMOL/L (3.5-5.1); THYROID STIMULATING HORMONE 0.24 ulU/ml (0.34-4.50); TOTAL CARBON DIOXIDE 24.4 MMOL/L (24-32); eCRCL 147 ML/MIN
[2024-04-23 12:31] VITALS: TEMP 98.8
== END | disposition home or self-care (01) ==
LOC: ER 01:16
DX: F29 Unspecified psychosis not due to a substance or known physiological condition (principal); R45.851 Suicidal ideations; F31.9 Bipolar disorder, unspecified; F20.9 Schizophrenia, unspecified; F12.90 Cannabis use, unspecified, uncomplicated; F15.90 Other stimulant use, unspecified, uncomplicated; Z98.890 Other specified postprocedural states; Z20.822 Contact with and (suspected) exposure to COVID-19
CPT/HCPCS: 36415; 80048; 80305; 80320; 81003; 84439; 84443; 85025; 87811; 99284; Q0163

== ENCOUNTER 2024-06-18 11:45 | Emergency (ER) | payer MEDICAID ==
[~2024-06-18] VITALS: Ht 180.3 cm; Wt 66.0 kg
[2024-06-18 14:19] VITALS: BP 126/87; PULSE 84; RESP 16; TEMP 98; O2SAT 100
== END 2024-06-18 14:30 | disposition home or self-care (01) ==
LOC: ER 11:45
DX: T40.411A Poisoning by fentanyl or fentanyl analogs, accidental (unintentional), initial encounter (principal); F20.9 Schizophrenia, unspecified; F31.9 Bipolar disorder, unspecified; F12.90 Cannabis use, unspecified, uncomplicated; F15.90 Other stimulant use, unspecified, uncomplicated; Y92.9 Unspecified place or not applicable
CPT/HCPCS: 93005; 99284

== ENCOUNTER 2024-08-13 13:06 | Emergency (ER) | payer MEDICAID ==
[~2024-08-13] VITALS: Ht 177.8 cm; Wt 66.0 kg
[2024-08-13] MEDS ORDERED: diazepam 5mg tablet PO ONE (15:10)
[2024-08-13 15:21] VITALS: BP 125/78; PULSE 88; RESP 16; TEMP 98.1; O2SAT 98
== END 2024-08-13 15:23 | disposition home or self-care (01) ==
LOC: ER 13:07
DX: T40.411A Poisoning by fentanyl or fentanyl analogs, accidental (unintentional), initial encounter (principal); F20.9 Schizophrenia, unspecified; F31.9 Bipolar disorder, unspecified; F12.90 Cannabis use, unspecified, uncomplicated; Z59.00 Homelessness unspecified; Y92.89 Other specified places as the place of occurrence of the external cause
CPT/HCPCS: 99283

== ENCOUNTER 2024-10-05 15:46 | Emergency (ER) | payer MEDICAID ==
[~2024-10-05] VITALS: Ht 180.3 cm; Wt 72.7 kg
--- NOTE | 2024-10-05 16:00 | Physician Documentation ---
History of Present Illness ~ Chief Complaint: Overdose Stated Complaint: OD Time Seen by MD: 15:59 OK to notify your PCP?: Yes Primary Medical Doctor: [facility] Source: patient, RN/MD, EMS, RN notes reviewed, EMS notes reviewed, old records Mode of Arrival: EMS Exam Limitations: no limitations HPI This patient is a 34 y/o male BIBEMS to ED for Fentanyl Overdose. Patient was reportedly found unresponsive near a dumpster by a security support analyst, who then administered 4mg of intranasal narcan. Per EMS, patient was awake and alert upon their arrival. He did admit to using Fentanyl today. He denies any chest pain or shortness of breath. Patient denies any other associated symptoms at this time. Patient denies any other alleviating or exacerbating factors. Medication Reconciliation Allergies: Coded Allergies: No Known Allergies (Unverified , 08/13/24) Scheduled Bupropion HCl (Bupropion HCl Sr), 150 MG PO BID Naloxone HCl (Naloxone HCl), 1 SPRAY NA ONCE Olanzapine (Olanzapine), 15 MG PO BID Propranolol Hcl* (Inderal*), 10 MG PO BID Trazodone HCl (Trazodone HCl), 50 MG PO HS Past Medical History Past Medical History: Extremity Fracture, Bipolar, Schizophrenia Past Surgical History: orthopedic surgeries Patient History: Patient reports no known family medical history. Smoking Status: Current every day smoker Alcohol Use: Occasionally Drug Use: marijuana, methamphetamine, other (Fentanyl) Lives In: Homeless Review of Systems All Other Systems at this time: Reviewed and Negative Physical Exam Vital Signs: RN Vital Signs have been reviewed: Yes, Temperature: 98.0, Source: Temporal, Heart Rate: 110, Respiratory Rate: 16, BP: 129/88, Pulse Oximetry: 100, Weight: 72.730 Oxygen Flow Rate: 0 Physical Exam General: Disheveled but otherwise the patient is well developed, well nourished, nontoxic appearing and is in no acute distress. Skin: [place], warm and dry with no rashes. HEENT: Head was normocephalic and atraumatic. Eyes - pupils equal, round, reactive to light and accommodation. Extraocular movements were intact. Conjunctivae were nonicteric. The mouth and oropharynx were clear with moist mucous membranes. There were no pharyngeal exudates or erythema. Neck: Supple and nontender. There was no jugular venous distention, lymphadenopathy, thyromegaly or masses. Chest: Clear to auscultation bilaterally without wheezes, rales or rhonchi. No accessory muscle use. No dullness to percussion. Heart: Rate regular and rhythmic. S1, S2. No murmurs. Palpation of the chest wall was normal. No rubs or thrills. Abdomen: Soft, nontender and nondistended. Positive bowel sounds. No guarding or rebound. No hepatosplenomegaly or palpable masses. Extremities: Left arm with evidence of prior orthopedic surgery. Otherwise: No cyanosis, clubbing or edema. The patient moves all extremities. Pulses were equal and symmetric. Neurologic: Cranial nerves II-XII were intact. Sensation was intact to light touch throughout. Motor strength was 5/5 in all four extremities. Deep tendon reflexes were intact in both upper and lower extremities. Psychologic: The patient was oriented to person, place and time. The patient demonstrated appropriate judgement and insight. Progress Results/Orders Reviewed/noted all lab results: Yes Results/Orders Orders - ALETHA HERNANDEZ MD Monitor (10/05/24 16:00) Electrocardiogram (10/05/24 16:00) Cult Urine + [address] (10/05/24 16:52) Po Challenge (10/05/24 17:46) Completed Orders - ALETHA HERNANDEZ MD Cbc/Diff (10/05/24 16:00) MG (10/05/24 16:00) PBNP (10/05/24 16:00) C-Reactive Protein (10/05/24 16:00) Ethanol (10/05/24 16:00) Drug Screen, Urine (10/05/24 16:00) Electrocardiogram (10/05/24 16:00) BMP (10/05/24 16:00) Hs Troponin I W Calculations (10/05/24 16:00) Ua W/Microscopic, Cult If Ind (10/05/24 16:29) Vital Signs 10/05/24 10/05/24 15:51 18:13 Temp 98.0 98.2 Pulse 110 100 Resp 16 16 B/P (MAP) 129/88 129/88 Pulse Ox 100 100 O2 Flow Rate 0 Laboratory Tests Test 10/05/24 16:29 10/05/24 16:34 Urine Specimen Description Cln catch midstream Urine Color Yellow Urine Clarity Slightly cloudy Urine pH 6.0 Urine Specific [place] >=1.030 Urine Protein 100 H Urine Glucose (UA) Negative Urine Ketones Negative Urine Occult Blood Negative Urine Nitrite Negative Urine Bilirubin Small Urine Urobilinogen 1.0 Urine Leukocyte Esterase Negative Urine RBC 10-20 Urine WBC 5-10 H Urine Squamous Epithelial Cells Few Urine Transitional Epithelial Cells Few Urine Calcium Oxalate Crystals 3+ Urine Bacteria 2+ Urine Fine Granular Casts 0-3 Urine Sperm Many Urine Culture Indicated Indicated Volume Urine Centrifuged 10 ml Urine Comment Urine Opiates Screen Negative Urine Methadone Screen Negative Urine Fentanyl Screen Positive H Urine Barbiturates Screen Negative Urine Phencyclidine Screen Negative Urine Amphetamines Screen Positive Urine Benzodiazepines Screen Negative Urine Cocaine Screen Negative Urine Cannabinoids Screen Positive Drug Screen Comment White Blood Count 13.3 H Red Blood Count 5.36 Hemoglobin 15.3 Hematocrit 46.0 Mean Corpuscular Volume 85.8 Mean Corpuscular Hemoglobin 28.6 Mean Corpuscular Hemoglobin Concent 33.3 Red Cell Distribution Width 15.3 H Platelet Count 319 Mean Platelet Volume 8.6 Neutrophils (%) (Auto) 80.5 H Lymphocytes (%) (Auto) 11.1 L Monocytes (%) (Auto) 7.3 Eosinophils (%) (Auto) 0.9 Basophils (%) (Auto) 0.2 Neutrophils # (Auto) 10.7 H Lymphocytes # (Auto) 1.5 Monocytes # (Auto) 1.0 H Eosinophils # (Auto) 0.1 Basophils # (Auto) 0.0 CBC Comment Sodium Level 142 Potassium Level 4.3 Chloride Level 106 Carbon Dioxide Level 28.7 Anion Gap 7 L Blood Urea Nitrogen 16 Creatinine 0.99 Estimated GFR/1.73 m2 87 BUN/Creatinine Ratio 16.2 Glucose Level 113 H Calcium Level 9.2 Magnesium Level 2.6 H Troponin I High Sensitivity 4 C-Reactive Protein 0.08 Pro-B-Type Natriuretic Peptide < 30 Albumin 4.4 Chemistry Comments Ethyl Alcohol Level < 10 Microbiology Date/Time Source Procedure Growth Status 10/05/24 16:52 Urine Clean Catch Midstream Urine Culture - Preliminary Culture received. Resulted Re-Evaluation Re-Evaluation : Re-Evaluation: Improved Progress Patient was seen and examined. Patient is given reassurance. The patient was found to have overdose given Narcan he was observed for [address] remained intact a appeared to have some disorganized thoughts having conversations with himself at times he denies any suicidal or homicidal ideation. Patient was prescribed nasal Narcan and discharged home. Laboratory work was obtained he has slight leukocytosis with a white count of 13.3 otherwi se no anemia slight left shift of 80 neutrophils but most likely a stress reaction. Chemistry within normal limits troponin negative C-reactive protein negative proBNP negative. Tox screen was positive for fentanyl methamphetamine as well as marijuana negative on a alcohol. Urinalysis was within normal limits. Patient was then discharged home. Continuous diagnostic cardiac sonographer interpretation shows sinus tachycardia heart rate 100s, abnormal, my interpretation. Pulse oximetry monitor interpretation shows normal oxygenation 99% room air, normal, my interpretation. Medical Decision Making Additional info obtained from: old records Differential Dx:Considerations: Include: Alcohol abuse, Anxiety, Bipolar dis order, Drug Overdose-Accidental, Drug Overdose-Intentional, Encephalopathy, Hallucinations, Panic disorder, Personality disorder, Suicidal attempt, Other Departure Time of Disposition: 17:54 Disposition: 01 HOME / SELF CARE / HOMELESS Impression: Primary Impression: Overdose of fentanyl Additional Impression: Respiratory failure Condition: Stable Discharge Instructions: Overdose, Adult, Opioid Overdose Additional Instructions: You were sent with Naloxone nasal spray. Pick this up and keep it with you at all times. Naloxone can save a life if a friend experiences an opioid overdose. Or, someone could use it on you if this happens again. Referrals: NO PRIMARY CARE PROVIDER (PCP) Prescriptions Naloxone HCl (Naloxone HCl) 4 Mg/Actuation [place] 1 SPRAY NA ONCE for 1 Day, #2 EA Prov: BETHANIE ZAMORA NP 10/05/24 Education Educated: Patient Educated regarding: diagnosis, treatment, prognosis, need for follow up Signature Scribe Signature: No scribed Attestation: The note accurately reflects work and decisions made by me.Aletha Hernandez MD 10/05/24 16:00 ALETHA HERNANDEZ MD Oct 05, 2024 16:00 BETHANIE ZAMORA NP Oct 05, 2024 17:49
[2024-10-05 16:37] LABS: BILIRUBIN,URINE SMALL (Neg); CLARITY,URINE SLIGHTLY CLOUDY (Clear); COLOR,URINE YELLOW (Yellow); GLUCOSE, URINE NEGATIVE (Neg); KETONES,URINE NEGATIVE (Neg); LEUKOCYTE ESTERASE ,URINE NEGATIVE (Neg); NITRITES, URINE NEGATIVE (Neg); OCCULT BLOOD,URINE NEGATIVE (Neg); PROTEIN,URINE 100 mg/dl (Neg)
[2024-10-05 16:45] LABS: URINE AMPHETAMINE SCREEN POSITIVE (Neg); URINE BARBITUATE SCREEN NEGATIVE (Neg); URINE BENZODIAZEPINES SCREEN NEGATIVE (Neg); URINE CANNABINOID SCREEN POSITIVE (Neg); URINE COCAINE SCREEN NEGATIVE (Neg); URINE METHADONE SCREEN NEGATIVE (Neg); URINE OPIATE SCREEN NEGATIVE (Neg); URINE PHENCYCLIDINE SCREEN NEGATIVE (Neg)
[2024-10-05 16:48] LABS: UA COLLECTION TYPE CLN CATCH MIDSTREAM
--- NOTE | 2024-10-05 16:48 | ELECTROCARDIOGRAPH REPORT ---
[facility] Test Date: 2024-10-05 Test Time: 16:45:54 Pat Name: ANA MARIA BEAUCHAMP Department: [facility] Patient ID: [facility]-[id number] Room: Gender: M Internal Control Manager: : 1990 Requested By: ALETHA HERNANDEZ Order Number: [id number] Reading MD: Arnold Simmons Measurements Intervals [place] Rate: 97 P: 66 MS: 124 QRS: 101 QRSD: 96 T: 1 QT: 363 QTc: 461 Interpretive Statements Sinus rhythm Borderline ST depression, inferior leads ST elevation, consider lateral injury Baseline wander in lead(s) V4,V5,V6 Electronically Signed On 10-05-2024 17:39:44 PDT by Arnold Simmons Please click the below link to view image of tracing.
[2024-10-05 16:50] LABS: BACTERIA,URINE 2+ /HPF (Neg); CAL OXALATE CRYSTALS 3+ /HPF (NEGATIVE); SQUAMOUS EPITHELIAL CELL,UR FEW /LPF (FEW); TRANSITIONAL EPI CELLS,URINE FEW /HPF
[2024-10-05 16:51] LABS: FINE GRANULAR CAST 0-3 /LPF (NEGATIVE); SPERM MANY /HPF (NEGATIVE)
[2024-10-05 17:01] LABS: BASOPHILS % (AUTO) 0.2 % (0-1); EOSINOPHILS # (AUTO) 0.1 X10'3 (0-0.9); EOSINOPHILS % (AUTO) 0.9 % (0-6); HEMOGLOBIN 15.3 g/dl (14.0-17.9); LYMPHOCYTES # (AUTO) 1.5 X10'3 (1.1-4.8); LYMPHOCYTES % (AUTO) 11.1 % (21-51); MEAN CORPUSCULAR HEMOGLOBIN 28.6 PG (27.0-31.0); MEAN CORPUSCULAR HGB CONC 33.3 g/dL (33.0-36.5); MEAN CORPUSCULAR VOLUME 85.8 FL (78-98); MEAN PLATELET VOLUME 8.6 FL (7.4-10.4); MONOCYTES % (AUTO) 7.3 % (2-12); NEUTROPHILS # (AUTO) 10.7 X10'3 (1.8-7.7); NEUTROPHILS % (AUTO) 80.5 % (42-75); PLATELET COUNT 319 X10'3 (140-440); RED BLOOD COUNT 5.36 X10'6 (4.70-6.10); RED CELL DISTRIBUTION WIDTH 15.3 % (11.5-14.5); WHITE BLOOD COUNT 13.3 X10'3 (4.5-11.0)
[2024-10-05 17:20] LABS: ALBUMIN 4.4 G/DL (3.4-5.0); ANION GAP 7 (8-16); BLOOD UREA NITROGEN 16 MG/DL (7-18); BUN/CREATININE RATIO 16.2 (10.0-20.0); C-REACTIVE PROTEIN 0.08 MG/DL (0.0-0.5); CALCIUM 9.2 MG/DL (8.5-10.1); CHLORIDE 106 MMOL/L (99-107); CREATININE 0.99 MG/DL (0.60-1.10); GLUCOSE 113 MG/DL (70-104); MAGNESIUM 2.6 MG/DL (1.5-2.4); POTASSIUM 4.3 MMOL/L (3.5-5.1); PRO BRAIN NATRIURETIC PEPTIDE < 30 PG/ML (0-125); SODIUM 142 MMOL/L (135-145); TOTAL CARBON DIOXIDE 28.7 MMOL/L (24-32); eCRCL 109 ML/MIN; eGFR 87 ML/MIN
[2024-10-05 17:31] LABS: ETHANOL < 10 MG/DL (<10)
[2024-10-05] MEDS ORDERED: NALO4SPR22 (17:48)
[2024-10-05 18:13] VITALS: BP 129/88; PULSE 100; RESP 16; TEMP 98.2; O2SAT 100
== END 2024-10-05 18:15 | disposition home or self-care (01) ==
LOC: ER 15:47
DX: T40.411A Poisoning by fentanyl or fentanyl analogs, accidental (unintentional), initial encounter (principal); F20.9 Schizophrenia, unspecified; F31.9 Bipolar disorder, unspecified; F12.90 Cannabis use, unspecified, uncomplicated; F17.200 Nicotine dependence, unspecified, uncomplicated; R06.02 Shortness of breath; Y92.89 Other specified places as the place of occurrence of the external cause
CPT/HCPCS: 36415; 80048; 80305; 80320; 81001; 83735; 83880; 84484; 85025; 86140; 87088; 93005; 99284

== ENCOUNTER 2024-10-24 21:41 | Emergency (ER) | payer MEDICAID ==
[~2024-10-24] VITALS: Ht 172.7 cm; Wt 68.2 kg
[~2024-10-24 21:41] MED LIST changes: +NALO4SPR22
[2024-10-24 21:46] VITALS: TEMP 98.2
--- NOTE | 2024-10-24 21:48 | Physician Documentation ---
History of Present Illness ~ Stated Complaint: OVERDOSE Time Seen by MD: 21:46 Primary Medical Doctor: [facility] 34-year-old male, history of substance abuse who presents with an overdose Per EMS, the patient was found down outside, unresponsive. He was given Narcan and woke back up. He admitted to using fentanyl. He also has a head injury, unknown exact cause. No other associated injuries. Here in the ED, the patient is awake, but is not very cooperative with questioning. He tells me he does not remember how he hit his head. He denies any other injuries or pain elsewhere. He denies any chest pain, abdominal pain, or extremity pain. History otherwise limited Medication Reconciliation Allergies: Coded Allergies: No Known Allergies (Unverified , 10/24/24) Scheduled Bupropion HCl (Bupropion HCl Sr), 150 MG PO BID Naloxone HCl (Naloxone HCl), 1 SPRAY NA ONCE Naloxone HCl (Narcan), 1 SPRAYS BOTHNARES ONCE Olanzapine (Olanzapine), 15 MG PO BID Propranolol Hcl* (Inderal*), 10 MG PO BID Trazodone HCl (Trazodone HCl), 50 MG PO HS Past Medical History Past Medical History: Extremity Fracture, Bipolar, Schizophrenia Past Surgical History: orthopedic surgeries Patient History: Patient reports no known family medical history. Alcohol Use: Occasionally Drug Use: marijuana, methamphetamine, other Lives In: Homeless Review of Systems Unable to obtain complete ROS: altered mental status Physical Exam Physical Exam General: This is a disheveled young man, lying in bed with his eyes closed HEENT: Superficial abrasion to the right forehead, with dried blood over the face. No focal bony point tenderness on palpation of the bones of the face. Pupils are 3 mm and reactive. oropharynx appears dry Heart: Tachycardic, appears regular Lungs: Clear breath sounds bilateral, normal work of breathing, normal oxygen saturation on room air Abdomen: Soft, nondistended, nontender all quadrants Extremities: No significant traumatic findings Neuro: Alert, will not answer orientation questions, moves all extremities and follows simple commands Progress Results/Orders Results/Orders Orders - ASHLI MADISON MD Ct Head (10/24/24 21:30) Completed Orders - ASHLI MADISON MD Ct Head (10/24/24 21:30) Vital Signs 10/24/24 10/24/24 10/24/24 10/25/24 21:46 23:18 23:18 01:00 Temp 98.2 Pulse 93 82 69 Resp 19 22 18 16 B/P (MAP) 136/115 133/89 (104) 125/79 Pulse Ox 100 94 98 O2 Flow Rate 0 EKG/XRAY/CT/US/VASC/MRI CT : Impression I personally reviewed the CT scan, and this shows no fracture, acute hemorrhage, or mass Medical Decision Making Differential Dx:Considerations: Include: Alcohol abuse, Depression, Drug Overdose-Accidental, Drug Overdose-Intentional Additional Comment 34-year-old male presenting with an overdose, responsive to Narcan. He also has an injury to his left forehead. No other evidence of injury on exam including neck or extremity injury. A head CT was obtained that shows no acute fracture or internal hemorrhage. He was observed here in the emergency department for several hours. He had no further respiratory depression or other concerning findings. He will be discharged with Narcan and outpatient resources. Departure Time of Disposition: 00:47 Disposition: 01 HOME / SELF CARE / HOMELESS Impression: Primary Impression: Poisoning by opiate or related narcotic Condition: Improved Discharge Instructions: Opioid Overdose Referrals: NO PRIMARY CARE PROVIDER (PCP) Prescriptions Naloxone HCl (Narcan) 4 Mg/Actuation [place] 1 SPRAYS BOTHNARES ONCE for 14 Days, #1 EA 0 Refills Prov: ASHLI MADISON MD 10/25/24 Education Educated: Patient Educated regarding: need for follow up Signature Scribe Signature: kristin Attestation: ASHLI Gonzalez MD Oct 24, 2024 21:48
--- NOTE | 2024-10-24 22:27 | RADIOLOGY REPORT ---
EXAM: CT CT HEAD INDICATION: Head Injury, found down, overdose TECHNIQUE: CT of the head without intravenous contrast. Radiation Dose : 1. Head: CT Dose: CTDI volume is 57.91 mGy. Dose-length product is 1092.5 mGy*cm The dose indicators for CT are the volume Computed Tomography (CT) Dose Index (CTDIvol) and the Dose Length Product (DLP), and are measured in units of mGy and mGy-cm, respectively. These indicators are not patient dose, but values generated from the CT scanner acquisition factors. The report includes radiation exposure data for exposures received during this examination. COMPARISON: CT CT HEAD on DOS: 08/27/23, CT HEAD on DOS: 09/23/21 FINDINGS: There is no evidence of acute intracranial hemorrhage, extra-axial collection, mass effect, midline s hift, herniation or hydrocephalus. The ventricles, sulci and cisterns are age appropriate. The wilson-white differentiation is intact. The visualized paranasal sinuses and mastoid air cells are clear. The surrounding soft tissues and osseous structures are unremarkable. IMPRESSION: 1. No acute intracranial abnormality. Radiation optimization: All CT scans at this facility use at least one of these dose optimization yosvany hniques: automated exposure control mA and/or kV adjustment per patient size (includes targeted exam s where dose is matched to clinical indication) or iterative reconstruction.
[2024-10-25] MEDS ORDERED: NALO4SPR BOTHNARES (00:48)
[2024-10-25 01:00] VITALS: BP 125/79; PULSE 69; RESP 16; O2SAT 98
== END 2024-10-25 01:02 | disposition home or self-care (01) ==
LOC: ER 21:42
DX: T40.601A Poisoning by unspecified narcotics, accidental (unintentional), initial encounter (principal); S00.81XA Abrasion of other part of head, initial encounter; R51.9 Headache, unspecified; F31.9 Bipolar disorder, unspecified; F20.9 Schizophrenia, unspecified; F12.90 Cannabis use, unspecified, uncomplicated; F15.90 Other stimulant use, unspecified, uncomplicated; F19.90 Other psychoactive substance use, unspecified, uncomplicated; Z72.89 Other problems related to lifestyle; Z59.00 Homelessness unspecified; X58.XXXA Exposure to other specified factors, initial encounter; Y93.89 Activity, other specified; Y92.89 Other specified places as the place of occurrence of the external cause; Y99.8 Other external cause status
CPT/HCPCS: 70450; 99284

== ENCOUNTER 2025-02-02 17:32 | Emergency (ER) | payer MEDICAID ==
[~2025-02-02] VITALS: Ht 175.3 cm; Wt 81.8 kg
[~2025-02-02 17:32] MED LIST changes: +NALO4SPR BOTHNARES
--- NOTE | 2025-02-02 18:31 | Physician Documentation ---
History of Present Illness ~ Chief Complaint: Vomiting Stated Complaint: VOMITING Time Seen by MD: 21:05 Primary Medical Doctor: [facility] HPI This is a 34-year-old male with a history of fentanyl abuse who presents by EMS from the [facility] for generalized body pain and nausea and vomiting, patient reports frequent fentanyl use with last use being one day prior. Patient reports he is amenable to entering a MAT program to stop using fentanyl. Patient reports no other acute symptoms or concerns. Medication Reconciliation Allergies: Coded Allergies: No Known Allergies (Unverified , 02/02/25) Scheduled Bupropion HCl (Bupropion HCl Sr), 150 MG PO BID Naloxone HCl (Naloxone HCl), 1 SPRAY NA ONCE Naloxone HCl (Narcan), 1 SPRAYS BOTHNARES ONCE Olanzapine (Olanzapine), 15 MG PO BID Propranolol Hcl* (Inderal*), 10 MG PO BID Trazodone HCl (Trazodone HCl), 50 MG PO HS Past Medical History Past Medical History: Extremity Fracture, Bipolar, Schizophrenia Past Surgical History: orthopedic surgeries Patient History: Patient reports no known family medical history. Alcohol Use: Occasionally Drug Use: marijuana, methamphetamine, other (Fentanyl) Lives In: Homeless Review of Systems ROS As stated above in the HPI, otherwise all systems are reviewed and negative. Physical Exam Vital Signs: Temperature: 97.6, Source: Temporal, Heart Rate: 63, Respiratory Rate: 18, BP: 171/107, Pulse Oximetry: 98, Weight: 81.820 Physical Exam VITALS: Reviewed and as above. GENERAL: Alert, nontoxic appearing, no apparent distress. HEENT: RESPIRATORY: No increased work of breathing, no respiratory distress, speaking in full clear sentences CHEST: CV: BACK: GI: MUSCULOSKELETAL: SKIN: NEURO: PSYCH: Progress Results/Orders Results/Orders Completed Orders - GRIFFIN BOYCE NP Clonidine 0.1mg/24 Hour Patch (Catapres (02/02/25 21:10) Medications Received in ER Medications (Trade) Dose Ordered Sig/Sadie Route PRN Reason Start Time Stop Time Status Last Admin Dose Admin (Motrin tablet) 800 mg ONCE ONCE PO 02/02/25 19:45 02/02/25 19:47 DC 02/02/25 21:02 800 MG (Zofran ODT tablet) 4 mg ONCE ONCE PO 02/02/25 19:45 02/02/25 19:47 DC 02/02/25 21:02 4 MG (Catapres 0.1mg/ 24 hour Patch) 1 patch ONCE ONCE TD 02/02/25 21:10 02/02/25 21:11 DC 02/02/25 21:19 1 PATCH Vital Signs 02/02/25 02/02/25 17:54 21:40 Temp 97.6 98.6 Pulse 63 63 Resp 18 18 B/P (MAP) 171/107 162/99 Pulse Ox 98 99 Medical Decision Making Findings MSE performed in triage and patient returned to ED lobby by nursing staff to await available ED room Treat patient for nausea vomiting and likely opioid use withdrawal Patient is hemodynamically stable normal vital signs otherwise in no acute distress Departure Disposition: 01 HOME / SELF CARE / HOMELESS Impression: Primary Impression: Opioid use disorder, moderate, dependence Discharge Instructions: Nausea and Vomiting, Adult Referrals: NO PRIMARY CARE PROVIDER (PCP) Signature Scribe Signature: r Attestation: Scribed for Griffin Boyce Computer Application Developer by Griffin Teran NP . 02/02/25 23:37 SAMY [employer] Feb 02, 2025 18:31 GRIFFIN BOYCE NP Feb 02, 2025 21:07
[2025-02-02] MEDS: ondansetron 4mg rapidly disintigrating tab PO ONE (21:02)
[2025-02-02] MEDS: ibuprofen tablet 400 MG TABLET PO ONE (21:02)
[2025-02-02] MEDS: cloNIDine 0.1 MG/24 HOUR patch (7 day patch) TD ONE (21:19)
[2025-02-02 21:40] VITALS: BP 162/99; PULSE 63; RESP 18; TEMP 98.6; O2SAT 99
== END 2025-02-02 21:41 | disposition home or self-care (01) ==
LOC: ER 17:33
DX: F11.20 Opioid dependence, uncomplicated (principal); F31.9 Bipolar disorder, unspecified; F20.9 Schizophrenia, unspecified; F12.90 Cannabis use, unspecified, uncomplicated; F15.90 Other stimulant use, unspecified, uncomplicated
CPT/HCPCS: 99284